=== PATIENT | male | born 1955 | race American Indian/Alaskan Native ===

== ENCOUNTER 2017-01-21 07:47 | Emergency (ER) | payer OTHER ==
[2017-01-21 08:40] LABS: Basophils % (Auto) 0.6 % (0.0-1.8); Eosinophils % (Auto) 0.1 % (0.0-4.3); Hematocrit 41.4 % (35.5-45.6); Hemoglobin 13.4 gm/dl (11.8-15.2); Mean Corpuscular HGB Conc 32 % (32-34); Mean Corpuscular Hemoglobin 30 pg (28-32); Mean Corpuscular Volume 91 fl (84-94); Platelet Count 328 K/mm3 (140-440); Red Blood Count 4.55 M/mm3 (3.65-5.03); Red Cell Distribution Width 13.9 % (13.2-15.2); White Blood Count 9.9 K/mm3 (4.5-11.0)
[2017-01-21 09:00] LABS: Alanine Aminotransferase 12 units/L (7-56); Albumin 4.3 g/dL (3.9-5); Albumin/Globulin Ratio 1.2 %; Alkaline Phosphatase 53 units/L (35-129); Amylase 111 units/L (27-131); BUN/Creatinine Ratio 6.66; Blood Urea Nitrogen 6 mg/dL (9-20); Calcium 10.1 mg/dL (8.4-10.2); Carbon Dioxide 18 mmol/L (22-30); Glucose 167 mg/dL (75-100); Lipase 40 units/L (13-60); Total Protein 7.9 g/dL (6.3-8.2)
[2017-01-21 09:01] LABS: Anion Gap 24 mmol/L; Chloride 101.8 mmol/L (98-107); Potassium 3.8 mmol/L (3.6-5.0); Sodium 140 mmol/L (137-145)
[2017-01-21 12:07] LABS: Bilirubin,Urine NEG (Negative); Blood,Urine NEG (Negative); Ketones,Urine 20 mg/dL (Negative); Leukocyte Esterase,Urine NEG (Negative); Mucus,Urine FEW /HPF; Nitrite,Urine NEG (Negative); Urobilinogen,Urine < 2.0 mg/dL (<2.0); WBC,Urine < 1.0 /HPF (0.0-6.0)
[2017-01-21] MEDS ORDERED: NACL 0.9% 1000 ML 1,000 ML IV ONE (13:37)
[2017-01-21] MEDS ORDERED: MORPHINE IV ONE (13:37)
[2017-01-21] MEDS ORDERED: ZOFRAN IV ONE ×2 (13:37→16:27)
--- NOTE | 2017-01-21 13:44 | Emergency Department Report ---
ED Abdominal Pain HPI - General Chief Complaint: Abdominal Pain Stated Complaint: Abdominal Pain Time Seen by Provider: 01/21/17 13:30 Source: patient, EMS Mode of arrival: Ambulatory Limitations: No Limitations - History of Present Illness Initial Comments: 61-year-old male presents to the emergency department via EMS complaining of abdominal pain. Patient reports the acute onset of generalized abdominal pain this morning at 4 AM. Pain is described as sharp in sensation and does not radiate. Pain has been constant since onset. Patient reports associated nausea , vomiting, and diarrhea. He denies seeing any blood. There has been no fever. Patient reports history of similar pain in the past. He states he has been diagnosed with pancreatitis, and this feels the same. There are no other complaints. MD Complaint: abdominal pain -: Sudden Time: 04:00 Location: diffuse Radiation: none Migration to: no migration Severity scale (0 -10): 7 Quality: sharp Consistency: constant Improves With: nothing Worsens With: nothing Associated Symptoms: nausea, vomiting, diarrhea - Related Data Previous Rx's Medication Instructions Recorded Last Taken Type HYDROcodone/APAP 7.5-325 [[place] 1 each PO Q6HR PRN #20 tablet 01/21/17 Unknown Rx 7.5/325] Allergies Allergy/AdvReac Type Severity Reaction Status Date / Time No Known Allergies Allergy Verified 09/19/16 16:33 ED Review of Systems ROS: Stated complaint: Abdominal Pain Other details as noted in HPI Comment: All other systems reviewed and negative Gastrointestinal: abdominal pain, nausea, vomiting, diarrhea ED Past Medical Hx - Past Medical History Previous Medical History?: Yes Hx Hypertension: Yes Hx Congestive Heart Failure: No Hx Diabetes: Yes Hx Asthma: No Hx COPD: No Hx HIV: No Additional medical history: pancreatitis. hypothyroid - Surgical History Past Surgical History?: Yes Hx Appendectomy: Yes - Family History Family history: no significant - Social History Smoking Status: Current Every Day Smoker Substance Use Type: Marijuana, Prescribed - Medications Home Medications: Home Medications Medication Instructions Recorded Confirmed Last Taken Type HYDROcodone/APAP 7.5-325 [[place] 1 each PO Q6HR PRN #20 tablet 01/21/17 Unknown Rx 7.5/325] ED Physical Exam - General Limitations: No Limitations General appearance: alert, in no apparent distress - Head Head exam: Present: atraumatic, normocephalic - Eye Eye exam: Present: normal appearance, PERRL, EOMI - ENT ENT exam: Present: normal exam, normal orophraynx, mucous membranes moist - Neck Neck exam: Present: normal inspection, full ROM. Absent: tenderness - Respiratory Respiratory exam: Present: normal lung sounds bilaterally. Absent: respiratory distress - Cardiovascular Cardiovascular Exam: Present: regular rate, normal rhythm, normal heart sounds - GI/Abdominal GI/Abdominal exam: Present: soft, tenderness (mild diffuse tenderness to palpation), normal bowel sounds. Absent: distended, guarding, rebound - Extremities Exam Extremities exam: Present: normal inspection, full ROM. Absent: tenderness - Back Exam Back exam: Present: normal inspection, full ROM. Absent: tenderness - Neurological Exam Neurological exam: Present: alert, oriented X3. Absent: motor sensory deficit - Skin Skin exam: Present: warm, dry, intact ED Course Vital Signs 01/21/17 01/21/17 01/21/17 08:19 13:21 13:56 Temperature 97.7 F 97.7 F Pulse Rate 66 72 77 Respiratory 20 16 15 Rate Blood Pressure 159/95 Blood Pressure 165/72 144/69 [Right] O2 Sat by Pulse 100 100 99 Oximetry 01/21/17 16:55 Temperature Pulse Rate 90 Respiratory 18 Rate Blood Pressure Blood Pressure 167/96 [Right] O2 Sat by Pulse 100 Oximetry ED Medical Decision Making - Lab Data Result diagrams: 01/21/17 08:28 01/21/17 08:28 - Medical Decision Making Laboratory results reviewed and discussed with the patient. Patient reports feeling better following medication. Patient will be discharged home at this time to follow up with his doctors. - Differential Diagnosis abdominal pain, pancreatitis, dehydration Critical care attestation.: If time is entered above; I have spent that time in minutes in the direct care of this critically ill patient, excluding procedure time. ED Disposition Clinical Impression: Pancreatitis, chronic Qualifiers: Pancreatitis type: unspecified pancreatitis type Qualified Code(s): K86.1 - Other chronic pancreatitis Disposition: TO HOME OR SELFCARE Is pt being admited?: No Condition: Stable Instructions: Pancreatitis (ED) Prescriptions: HYDROcodone/APAP 7.5-325 [[place] 7.5/325] 1 each PO Q6HR PRN #20 tablet PRN Reason: Pain Referrals: PRIMARY CARE, [Primary Care Provider] - 3-5 Days Time of Disposition: 18:20
[2017-01-21] MEDS ORDERED: DILAUDID IV ONE (16:27)
[2017-01-21 18:59] VITALS: BP 137/82
== END 2017-01-21 18:59 | disposition home or self-care (01) ==
LOC: ED 07:47
DX: K86.1 Other chronic pancreatitis (principal); I10 Essential (primary) hypertension; E11.9 Type 2 diabetes mellitus without complications; E03.9 Hypothyroidism, unspecified; F12.10 Cannabis abuse, uncomplicated; F17.200 Nicotine dependence, unspecified, uncomplicated; Z98.890 Other specified postprocedural states
CPT/HCPCS: 36415; 80053; 81001; 82150; 83690; 85025; 96361; 96374; 96375; 96376; 99284; J1170; J2270; J2405; J7030

== ENCOUNTER 2017-05-21 05:44 | Emergency (ER) | payer OTHER ==
[2017-05-21 06:37] LABS: Eosinophils % (Auto) 0.1 % (0.0-4.3); Hemoglobin 13.2 gm/dl (11.8-15.2); Mean Corpuscular HGB Conc 34 % (32-34); Mean Corpuscular Hemoglobin 30 pg (28-32); Mean Corpuscular Volume 89 fl (84-94); Platelet Count 375 K/mm3 (140-440); Red Blood Count 4.41 M/mm3 (3.65-5.03); Red Cell Distribution Width 14.6 % (13.2-15.2); White Blood Count 8.8 K/mm3 (4.5-11.0)
[2017-05-21 06:54] LABS: Alanine Aminotransferase 14 units/L (7-56); Albumin 4.4 g/dL (3.9-5); Albumin/Globulin Ratio 1.1 %; Alkaline Phosphatase 50 units/L (35-129); Anion Gap 25 mmol/L; BUN/Creatinine Ratio 8; Blood Urea Nitrogen 7 mg/dL (9-20); Calcium 9.9 mg/dL (8.4-10.2); Carbon Dioxide 19 mmol/L (22-30); Chloride 97.5 mmol/L (98-107); Glucose 186 mg/dL (75-100); Lipase 42 units/L (13-60); Potassium 3.5 mmol/L (3.6-5.0); Sodium 138 mmol/L (137-145); Total Protein 8.4 g/dL (6.3-8.2)
[2017-05-21 08:03] LABS: Bilirubin,Urine NEG (Negative); Blood,Urine NEG (Negative); Ketones,Urine 20 mg/dL (Negative); Leukocyte Esterase,Urine NEG (Negative); Nitrite,Urine NEG (Negative); Protein,Urine <15 mg/dL mg/dL (Negative); Urobilinogen,Urine < 2.0 mg/dL (<2.0); WBC,Urine < 1.0 /HPF (0.0-6.0)
[2017-05-21] MEDS ORDERED: ZOFRAN IV ONE (11:54)
[2017-05-21] MEDS ORDERED: PEPCID IV ONE (11:54)
[2017-05-21] MEDS ORDERED: MORPHINE IV ONE (11:54)
[2017-05-21] MEDS ORDERED: VALIUM IV ONE (11:54)
--- NOTE | 2017-05-21 11:55 | Emergency Department Report ---
ED General Adult HPI - General Chief complaint: Abdominal Pain Stated complaint: NAUSEA/VOMITING Time Seen by Provider: 05/21/17 11:41 Source: patient, EMS (ems notes not available at time of chart dictation), RN notes reviewed, old records reviewed Mode of arrival: Stretcher Limitations: No Limitations - History of Present Illness Initial comments: This is a 61-year-old male, the patient is previously known to me. Patient has a past medical history of alcohol abuse, pancreatitis. Patient presents to the ER with EMS for abdominal pain. The abdominal pain is epigastric, and associated with profuse nausea and vomiting. The patient reports no alcohol consumption for the past few months, he denies chest pain or shortness of breath, the patient denies testicular pain and irritative/ obstructive urinary symptoms, and he reports that his pain today is similar to prior episodes of pancreatitis. The pain is sharp, "all over", increases with palpation, decreases with rest, he reports pain typically improves with IV pain medication. -: Gradual Location: abdomen Radiation: non-radiation Quality: aching Consistency: constant Improves with: medication, rest Worsens with: movement Associated Symptoms: loss of appetite, malaise, nausea/vomiting. denies: chest pain - Related Data Previous Rx's Medication Instructions Recorded Last Taken Type HYDROcodone/APAP 7.5-325 [[place] 1 each PO Q6HR PRN #20 tablet 01/21/17 Unknown Rx 7.5/325] Dicyclomine [Bentyl] 10 mg PO QID PRN #20 capsule 05/21/17 Unknown Rx Famotidine [Pepcid] 20 mg PO QDAY #30 tablet 05/21/17 Unknown Rx Ondansetron [Zofran Odt] 4 mg PO QID PRN #20 tab.rapdis 05/21/17 Unknown Rx Promethazine [Phenergan SUPPOS] 50 mg NE Q6H PRN #20 supp.rect 05/21/17 Unknown Rx Sucralfate [Carafate] 1 gm PO ACHS #120 udc 05/21/17 Unknown Rx Allergies Allergy/AdvReac Type Severity Reaction Status Date / Time No Known Allergies Allergy Verified 09/19/16 16:33 ED Review of Systems ROS: Stated complaint: NAUSEA/VOMITING Other details as noted in HPI Constitutional: malaise. denies: fever Eyes: denies: vision change ENT: denies: epistaxis Respiratory: denies: cough Cardiovascular: denies: chest pain Gastrointestinal: abdominal pain, nausea, vomiting Genitourinary: denies: dysuria, testicular pain Musculoskeletal: denies: back pain Skin: denies: lesions Neurological: denies: weakness Psychiatric: denies: homicidal thoughts, suicidal thoughts ED Past Medical Hx - Past Medical History Previous Medical History?: Yes Hx Hypertension: Yes Hx Congestive Heart Failure: No Hx Diabetes: Yes Hx Asthma: No Hx COPD: No Hx HIV: No Additional medical history: pancreatitis. hypothyroid - Surgical History Past Surgical History?: Yes Hx Appendectomy: Yes - Social History Smoking Status: Current Every Day Smoker Substance Use Type: Marijuana - Medications Home Medications: Home Medications Medication Instructions Recorded Confirmed Last Taken Type HYDROcodone/APAP 7.5-325 [[place] 1 each PO Q6HR PRN #20 tablet 01/21/17 Unknown Rx 7.5/325] Dicyclomine [Bentyl] 10 mg PO QID PRN #20 capsule 05/21/17 Unknown Rx Famotidine [Pepcid] 20 mg PO QDAY #30 tablet 05/21/17 Unknown Rx Ondansetron [Zofran Odt] 4 mg PO QID PRN #20 tab.rapdis 05/21/17 Unknown Rx Promethazine [Phenergan SUPPOS] 50 mg NE Q6H PRN #20 supp.rect 05/21/17 Unknown Rx Sucralfate [Carafate] 1 gm PO ACHS #120 udc 05/21/17 Unknown Rx ED Physical Exam - General Limitations: No Limitations General appearance: alert, in no apparent distress - Head Head exam: Present: atraumatic, normocephalic - Eye Eye exam: Present: normal appearance, EOMI. Absent: nystagmus - ENT ENT exam: Present: normal exam, normal orophraynx, mucous membranes moist, normal external ear exam, other (no tongue fasciculations noted) - Neck Neck exam: Present: normal inspection, full ROM. Absent: tenderness, meningismus - Respiratory Respiratory exam: Present: normal lung sounds bilaterally. Absent: respiratory distress, wheezes, rales, rhonchi, stridor, chest wall tenderness, accessory muscle use, decreased breath sounds, prolonged expiratory - Cardiovascular Cardiovascular Exam: Present: regular rate, normal rhythm, normal heart sounds. Absent: bradycardia, tachycardia, irregular rhythm, systolic murmur, diastolic murmur, rubs, gallop - GI/Abdominal GI/Abdominal exam: Present: soft, tenderness, normal bowel sounds, other (there is epigastric tenderness, there is no rebound, guarding or peritoneal signs). Absent: distended, guarding, rebound, rigid, pulsatile mass - Rectal Rectal exam: Present: deferred - Extremities Exam Extremities exam: Present: normal inspection, full ROM, normal capillary refill. Absent: pedal edema, joint swelling, calf tenderness - Back Exam Back exam: Present: normal inspection, full ROM. Absent: tenderness, CVA tenderness (R), CVA tenderness (L), muscle spasm, paraspinal tenderness, vertebral tenderness - Neurological Exam Neurological exam: Present: alert, oriented X3, other (Extraocular movements intact. Tongue midline. No facial droop. Facial sensation intact to light touch in the V1, V2, V3 distribution bilaterally. 5 and 5 strength in 4 extremities.. Sensation is intact to light touch in 4 extremities.). Absent: motor sensory deficit - Psychiatric Psychiatric exam: Present: normal affect, normal mood. Absent: homicidal ideation, suicidal ideation - Skin Skin exam: Present: warm, dry, intact, normal color. Absent: rash ED Course Vital Signs 05/21/17 05/21/17 05:57 12:24 Temperature 97.9 F Pulse Rate 76 57 L Respiratory 18 16 Rate Blood Pressure 155/78 Blood Pressure 189/99 [Left] O2 Sat by Pulse 99 95 Oximetry - Reevaluation(s) Reevaluation #1: 05/21/17 14:46 Patient feels improved. Tolerating liquid feeds. As expected, CT scan suggests chronic pancreatitis, and hiatal hernia. The patient will be discharged with nonnarcotic pain medication, nausea medication, patient is walking with a steady gait at this time, he can follow up with outpatient gastroenterology. Return precautions are reviewed. - EJ/Peripheral Line Neck R Time Out Performed: Yes Indications: nurses unable to establis Skin Cleansed in Sterile Fashion: Yes Size: 18 Dressing Placed: Tegaderm Patient Tolerated Procedure: well ED Medical Decision Making - Lab Data Result diagrams: 05/21/17 06:07 05/21/17 06:07 Vital Signs 05/21/17 05/21/17 05:57 12:24 Temperature 97.9 F Pulse Rate 76 57 L Respiratory 18 16 Rate Blood Pressure 155/78 Blood Pressure 189/99 [Left] O2 Sat by Pulse 99 95 Oximetry Lab Results 05/21/17 05/21/17 05/21/17 Range/Units 06:07 06:07 07:31 WBC 8.8 (4.5-11.0) K/mm3 RBC 4.41 (3.65-5.03) M/mm3 Hgb 13.2 (11.8-15.2) gm/dl Hct 39.0 (35.5-45.6) % MCV 89 (84-94) fl MCH 30 (28-32) pg MCHC 34 (32-34) % RDW 14.6 (13.2-15.2) % Plt Count 375 (140-440) K/mm3 Lymph % (Auto) 13.2 L (13.4-35.0) % [place] % (Auto) 1.4 (0.0-7.3) % Eos % (Auto) 0.1 (0.0-4.3) % Baso % (Auto) 1.0 (0.0-1.8) % Lymph # 1.2 (1.2-5.4) K/mm3 [place] # 0.1 (0.0-0.8) K/mm3 Eos # 0.0 (0.0-0.4) K/mm3 Baso # 0.1 (0.0-0.1) K/mm3 Seg Neutrophils % 84.3 H (40.0-70.0) % Seg Neutrophils # 7.5 (1.8-7.7) K/mm3 Sodium 138 (137-145) mmol/L Potassium 3.5 L (3.6-5.0) mmol/L Chloride 97.5 L (98-107) mmol/L Carbon Dioxide 19 L (22-30) mmol/L Anion Gap 25 mmol/L BUN 7 L (9-20) mg/dL Creatinine 0.9 (0.8-1.5) mg/dL Estimated GFR > 60 ml/min BUN/Creatinine Ratio 8 % Glucose 186 H (75-100) mg/dL POC Glucose (70-105) Calcium 9.9 (8.4-10.2) mg/dL Total Bilirubin 0.40 (0.1-1.2) mg/dL AST 16 (5-40) units/L ALT 14 (7-56) units/L Alkaline Phosphatase 50 (35-129) units/L Total Protein 8.4 H (6.3-8.2) g/dL Albumin 4.4 (3.9-5) g/dL Albumin/Globulin Ratio 1.1 % Lipase 42 (13-60) units/L Urine Color Yellow (Yellow) Urine Turbidity Clear (Clear) Urine pH 7.0 (5.0-7.0) Ur Specific [place] 1.017 (1.003-1.030) Urine Protein <15 mg/dl (Negative) mg/dL Urine Glucose (UA) 150 (Negative) mg/dL Urine Ketones 20 (Negative) mg/dL Urine Blood Neg (Negative) Urine Nitrite Neg (Negative) Urine Bilirubin Neg (Negative) Urine Urobilinogen < 2.0 (<2.0) mg/dL Ur Leukocyte Esterase Neg (Negative) Urine WBC (Auto) < 1.0 (0.0-6.0) /HPF Urine RBC (Auto) 2.0 (0.0-6.0) /HPF 05/21/17 Range/Units 12:47 WBC (4.5-11.0) K/mm3 RBC (3.65-5.03) M/mm3 Hgb (11.8-15.2) gm/dl Hct (35.5-45.6) % MCV (84-94) fl MCH (28-32) pg MCHC (32-34) % RDW (13.2-15.2) % Plt Count (140-440) K/mm3 Lymph % (Auto) (13.4-35.0) % [place] % (Auto) (0.0-7.3) % Eos % (Auto) (0.0-4.3) % Baso % (Auto) (0.0-1.8) % Lymph # (1.2-5.4) K/mm3 [place] # (0.0-0.8) K/mm3 Eos # (0.0-0.4) K/mm3 Baso # (0.0-0.1) K/mm3 Seg Neutrophils % (40.0-70.0) % Seg Neutrophils # (1.8-7.7) K/mm3 Sodium (137-145) mmol/L Potassium (3.6-5.0) mmol/L Chloride (98-107) mmol/L Carbon Dioxide (22-30) mmol/L Anion Gap mmol/L BUN (9-20) mg/dL Creatinine (0.8-1.5) mg/dL Estimated GFR ml/min BUN/Creatinine Ratio % Glucose (75-100) mg/dL POC Glucose 185 H (70-105) Calcium (8.4-10.2) mg/dL Total Bilirubin (0.1-1.2) mg/dL AST (5-40) units/L ALT (7-56) units/L Alkaline Phosphatase (35-129) units/L Total Protein (6.3-8.2) g/dL Albumin (3.9-5) g/dL Albumin/Globulin Ratio % Lipase (13-60) units/L Urine Color (Yellow) Urine Turbidity (Clear) Urine pH (5.0-7.0) Ur Specific [place] (1.003-1.030) Urine Protein (Negative) mg/dL Urine Glucose (UA) (Negative) mg/dL Urine Ketones (Negative) mg/dL Urine Blood (Negative) Urine Nitrite (Negative) Urine Bilirubin (Negative) Urine Urobilinogen (<2.0) mg/dL Ur Leukocyte Esterase (Negative) Urine WBC (Auto) (0.0-6.0) /HPF Urine RBC (Auto) (0.0-6.0) /HPF - EKG Data 05/21/17 14:15 Normal sinus, 75 beats per minute, low voltage in the inferior leads, borderline left axis deviation, abnormal EKG, not morphologically consistent with STEMI, appears grossly unchanged when compared to prior EKG from 2016. - Radiology Data Radiology results: report reviewed, image reviewed CT scan suggests chronic pancreatitis. Hiatal hernia is suggested. - Medical Decision Making Differential diagnosis: GERD, gastritis, pancreatitis, pneumonia, alcoholic gastritis Assessment and plan: 61-year-old male, clinically sober, does not require 1013, with recurrent epigastric abdominal pain, unchanged EKG from prior, similar presentation to September 2016 of this year, when I evaluated the patient for similar symptoms. There are no tongue fasciculations but the patient does seem to have some generalized tremulousness. Therefore, he will be treated empirically with Valium. Patient's pain will be treated with other medications as well as nausea medication, IV fluids. CT scan of the abdomen and pelvis has been completed, results are pending, he received 2 rounds of antibiotic medication, nursing staff reports improvement in symptoms. Patient corroborates this. Critical care attestation.: If time is entered above; I have spent that time in minutes in the direct care of this critically ill patient, excluding procedure time. ED Disposition Clinical Impression: Abdominal pain Disposition: DC- TO HOME OR SELFCARE Is pt being admited?: No Does the pt Need Aspirin: No Condition: Good Instructions: Acute Abdominal Pain (ED), Pancreatitis (ED) Additional Instructions: Take the pain medication, nausea medications as directed. Avoid consumption of aspirin, ibuprofen, Aleve, Motrin, Naprosyn. Decrease and attempts to a limited alcohol consumption. Follow up with either primary care or gastroenterology within the next 3-[address] Chadwick is a local gastroenterology specialist. Dr. Donaldson is a local primary care doctor. Return to the ER right away with new pain, worse pain, migration of pain, fevers, chills, lethargy, irritability , projectile vomiting, change in mental status, inability to tolerate liquid feeds. Referrals: PRIMARY CARE, [Primary Care Provider] - 3-5 Days LISSA CHADWICK MD [Staff Physician] - 3-5 Days CHARO DONALDSON MD [Staff Physician] - 3-5 Days
[2017-05-21] MEDS ORDERED: D5/0.45NS 1,000 ML IV SCH (12:00)
[2017-05-21 12:24] VITALS: BP 189/99
[2017-05-21] MEDS ORDERED: NACL ONE (13:00)
[2017-05-21] MEDS ORDERED: REGLAN IV ONE (13:17)
[2017-05-21] MEDS ORDERED: REGLAN ONE (13:18)
[2017-05-21] MEDS ORDERED: CARAFATE PO ONE (14:25)
--- NOTE | 2017-05-21 14:26 | Cat Scan Report ---
CT SCAN OF THE ABDOMEN AND PELVIS WITH CONTRAST: HISTORY: Abdominal pain. TECHNIQUE: Helical CT in 1.25mm intervals following IV contrast. Sagittal and coronal reconstructions. FINDINGS: Compared to 09/19/26. The liver is normal in size and is without focal defect. No gallstones or biliary dilatation are noted. There are scattered calcifications in the pancreatic head suggestive of chronic pancreatitis. No acute inflammatory findings are appreciated. The kidneys are normal in size and position with no evidence of hydronephrosis or mass. Multiple bilateral simple renal cysts are stable. No obstructive uropathy. The adrenal glands are normal. The spleen is normal size and attenuation. There is no intestinal obstruction or ascites. Normal appendix. There is a moderate hiatal hernia. The abdominal aorta is normal caliber with diffuse calcifications. No abnormalities are identified within the retroperitoneum or mesentery. There is no evidence of peritoneal air or fluid. There is no evidence of any abnormal masses or fluid collections within the pelvis. No adenopathy is identified. The bladder is normal. IMPRESSION: No acute inflammatory process is appreciated. Chronic pancreatitis. No CT evidence for acute pancreatitis. Bilateral simple renal cysts. Hiatal hernia.
== END 2017-05-21 15:19 | disposition home or self-care (01) ==
LOC: ED 05:44
DX: R10.13 Epigastric pain (principal); I10 Essential (primary) hypertension; K85.90 Acute pancreatitis without necrosis or infection, unspecified
CPT/HCPCS: 36415; 74177; 80053; 81001; 82962; 83690; 85025; 93005; 93010; 96361; 96374; 96375; 99285; J2270; J2405; J2765; J3360; Q9967

== ENCOUNTER 2018-01-07 08:32 | Emergency (ER) | payer OTHER ==
[2018-01-07 09:11] LABS: Basophils % (Auto) 0.4 % (0.0-1.8); Eosinophils % (Auto) 0.3 % (0.0-4.3); Hematocrit 37.9 % (35.5-45.6); Hemoglobin 12.9 gm/dl (11.8-15.2); Lymphocytes % (Auto) 9.1 % (13.4-35.0); Mean Corpuscular HGB Conc 34 % (32-34); Mean Corpuscular Hemoglobin 30 pg (28-32); Mean Corpuscular Volume 87 fl (84-94); Monocytes # (Auto) 0.2 K/mm3 (0.0-0.8); Platelet Count 311 K/mm3 (140-440); Red Blood Count 4.34 M/mm3 (3.65-5.03); Red Cell Distribution Width 14.5 % (13.2-15.2)
[2018-01-07 09:32] LABS: Alanine Aminotransferase 25 units/L (7-56); Albumin 4.3 g/dL (3.9-5); BUN/Creatinine Ratio 11; Blood Urea Nitrogen 10 mg/dL (9-20); Calcium 10.3 mg/dL (8.4-10.2); Hemolysis Index 65; Lipase 24 units/L (13-60)
[2018-01-07] MEDS ORDERED: ZOFRAN ONE (10:12)
[2018-01-07] MEDS ORDERED: NACL 0.9% 1000 ML 1,000 ML ONE (10:12)
[2018-01-07] MEDS ORDERED: TORADOL ONE (10:13)
[2018-01-07] MEDS ORDERED: NACL 0.9% 1000 ML 1,000 ML IV ONE ×2 (10:15→14:20)
[2018-01-07] MEDS ORDERED: ZOFRAN IV ONE (10:15)
[2018-01-07] MEDS ORDERED: REGLAN ONE (11:02)
[2018-01-07] MEDS ORDERED: TORADOL IV ONE (11:06)
[2018-01-07] MEDS ORDERED: REGLAN IV ONE (11:09)
[2018-01-07] MEDS ORDERED: DILAUDID IV ONE (14:20)
--- NOTE | 2018-01-07 14:21 | Emergency Department Report ---
ED Abdominal Pain HPI - General Chief Complaint: Nausea/Vomiting/Diarrhea Stated Complaint: NAUSEA/VOMITING Time Seen by Provider: 01/07/18 14:07 Source: patient, EMS Mode of arrival: Ambulatory Limitations: No Limitations - History of Present Illness Initial Comments: 62-year-old male past medical history pancreatitis hypertension diabetes presents with complaint of epigastric pain with associated nausea and vomiting since yesterday. Patient states this is consistent with previous episodes of pancreatitis. Patient is awake alert and oriented 3. Denies chest pain palpitations or shortness of breath. States his nausea has improved since he received medicine earlier today. However still complaining of epigastric abdominal pain. MD Complaint: abdominal pain Location: epigastric Radiation: epigastric Migration to: epigastric Severity: moderate Severity scale (0 -10): 6 Quality: sharp Consistency: intermittent Improves With: nothing Worsens With: nothing - Related Data Previous Rx's Medication Instructions Recorded Last Taken Type HYDROcodone/APAP 7.5-325 [[place] 1 each PO Q6HR PRN #20 tablet 01/21/17 Unknown Rx 7.5/325] Dicyclomine [Bentyl] 10 mg PO QID PRN #20 capsule 05/21/17 Unknown Rx Famotidine [Pepcid] 20 mg PO QDAY #30 tablet 05/21/17 Unknown Rx Ondansetron [Zofran Odt] 4 mg PO QID PRN #20 tab.rapdis 05/21/17 Unknown Rx Promethazine [Phenergan SUPPOS] 50 mg VT Q6H PRN #20 supp.rect 05/21/17 Unknown Rx Sucralfate [Carafate] 1 gm PO ACHS #120 udc 05/21/17 Unknown Rx HYDROcodone/ACETAMINOPHEN [[place] 1 each PO Q8H PRN #15 tablet 01/07/18 Unknown Rx 5-325 Tablet] Ibuprofen [Motrin] 800 mg PO Q8HR PRN #20 tablet 01/07/18 Unknown Rx Ondansetron [Zofran Odt] 4 mg PO Q8H PRN #12 tab.rapdis 01/07/18 Unknown Rx Allergies Allergy/AdvReac Type Severity Reaction Status Date / Time No Known Allergies Allergy Verified 01/07/18 08:41 ED Review of Systems ROS: Stated complaint: NAUSEA/VOMITING Other details as noted in HPI Constitutional: denies: chills, fever Eyes: denies: eye pain, eye discharge, vision change ENT: denies: ear pain, throat pain Respiratory: denies: cough, shortness of breath, wheezing Cardiovascular: denies: chest pain, palpitations Endocrine: no symptoms reported Gastrointestinal: denies: abdominal pain, nausea, diarrhea Genitourinary: denies: urgency, dysuria Musculoskeletal: denies: back pain, joint swelling, arthralgia Skin: denies: rash, lesions Neurological: denies: headache, weakness, paresthesias Psychiatric: denies: anxiety, depression Hematological/Lymphatic: denies: easy bleeding, easy bruising ED Past Medical Hx - Past Medical History Hx Hypertension: Yes Hx Congestive Heart Failure: No Hx Diabetes: Yes Hx Asthma: No Hx COPD: No Hx HIV: No Additional medical history: pancreatitis. hypothyroid - Surgical History Hx Appendectomy: Yes - Social History Smoking Status: Current Every Day Smoker Substance Use Type: Marijuana - Medications Home Medications: Home Medications Medication Instructions Recorded Confirmed Last Taken Type HYDROcodone/APAP 7.5-325 [[place] 1 each PO Q6HR PRN #20 tablet 01/21/17 Unknown Rx 7.5/325] Dicyclomine [Bentyl] 10 mg PO QID PRN #20 capsule 05/21/17 Unknown Rx Famotidine [Pepcid] 20 mg PO QDAY #30 tablet 05/21/17 Unknown Rx Ondansetron [Zofran Odt] 4 mg PO QID PRN #20 tab.rapdis 05/21/17 Unknown Rx Promethazine [Phenergan SUPPOS] 50 mg [place] Q6H PRN #20 supp.rect 05/21/17 Unknown Rx Sucralfate [Carafate] 1 gm PO ACHS #120 udc 05/21/17 Unknown Rx HYDROcodone/ACETAMINOPHEN [[place] 1 each PO Q8H PRN #15 tablet 01/07/18 Unknown Rx 5-325 Tablet] Ibuprofen [Motrin] 800 mg PO Q8HR PRN #20 tablet 01/07/18 Unknown Rx Ondansetron [Zofran Odt] 4 mg PO Q8H PRN #12 tab.rapdis 01/07/18 Unknown Rx ED Physical Exam - General Limitations: No Limitations General appearance: alert, in no apparent distress - Head Head exam: Present: atraumatic, normocephalic - Eye Eye exam: Present: normal appearance, PERRL, EOMI - ENT ENT exam: Present: mucous membranes moist - Neck Neck exam: Present: normal inspection - Respiratory Respiratory exam: Present: normal lung sounds bilaterally. Absent: respiratory distress - Cardiovascular Cardiovascular Exam: Present: regular rate, normal rhythm. Absent: systolic murmur, diastolic murmur, rubs, gallop - GI/Abdominal GI/Abdominal exam: Present: tenderness (slight epigastric pain), normal bowel sounds - Rectal Rectal exam: Present: deferred - Extremities Exam Extremities exam: Present: normal inspection - Back Exam Back exam: Present: normal inspection - Neurological Exam Neurological exam: Present: alert, oriented X3, CN II-XII intact, normal gait - Psychiatric Psychiatric exam: Present: normal affect, normal mood - Skin Skin exam: Present: warm, dry, intact, normal color. Absent: rash ED Course Vital Signs 01/07/18 01/07/18 01/07/18 08:41 14:52 15:22 Temperature 98.4 F 99.4 F Pulse Rate 82 90 Respiratory 18 16 15 Rate Blood Pressure 174/84 Blood Pressure 135/72 [Left] O2 Sat by Pulse 100 100 Oximetry ED Medical Decision Making - Lab Data Result diagrams: 01/07/18 09:01 01/07/18 09:01 - Medical Decision Making A/P: Epigastric pain 1-CT shows no acute pancreatitis. Patient tolerating by mouth and describes decreasing pain 2-short course of Motrin, [place], Zofran when necessary 3-follow-up with primary care physician 4-labs in case reviewed with Dr. Veloz. I advised patient to return to the ED if he cannot tolerate anything by mouth. Patient is actively drinking fluid without difficulty Critical care attestation.: If time is entered above; I have spent that time in minutes in the direct care of this critically ill patient, excluding procedure time. ED Disposition Clinical Impression: Epigastric pain Disposition: DC- TO HOME OR SELFCARE Is pt being admited?: No Does the pt Need Aspirin: No Condition: Stable Instructions: Abdominal Pain (ED) Prescriptions: HYDROcodone/ACETAMINOPHEN [[place] 5-325 Tablet] 1 each PO Q8H PRN #15 tablet PRN Reason: Pain Ibuprofen [Motrin] 800 mg PO Q8HR PRN #20 tablet PRN Reason: Pain Ondansetron [Zofran Odt] 4 mg PO Q8H PRN #12 tab.rapdis PRN Reason: Nausea Referrals: [facility] [Outside] - 3-5 Days [facility] [Outside] - 3-5 Days CHARO ENGLAND MD [Staff Physician] - 3-5 Days Time of Disposition: 15:19
--- NOTE | 2018-01-07 15:10 | Cat Scan Report ---
FINAL REPORT EXAM: CT ABDOMEN PELVIS WO CON HISTORY: epigastric pain TECHNIQUE: Noncontrast CT of the abdomen and pelvis performed. No IV or gastrointestinal contrast was administered. Axial images and coronal and sagittal reformatted images were obtained. PRIORS: 09/19/2016 FINDINGS: The visualized aspects of the lung bases are clear. There is a small hiatal hernia. Within the limitations of a non-enhanced study, the visualized liver, spleen, and adrenal glands demonstrate no significant abnormalities. There are multiple unchanged renal cysts. There are some calcifications in the pancreatic head region which are unchanged and probably reflect prior episodes of pancreatitis. There is currently no evidence of acute pancreatitis. There are aortoiliac atherosclerotic calcifications. There is no abdominal aortic aneurysm. There is no evidence of intestinal obstruction. The appendix is normal. There are no abnormal fluid collections seen. There is no free intraperitoneal air. The bladder is unremarkable. There is no abnormal pelvic mass or fluid collections seen. IMPRESSION: Unchanged small hiatal hernia. Pancreatic head calcifications are unchanged and probably reflect prior episodes of pancreatitis. There is currently no evidence of acute pancreatitis. Unchanged renal cysts. There is no acute abnormality identified.
[2018-01-07 15:24] VITALS: BP 135/72
== END 2018-01-07 15:49 | disposition home or self-care (01) ==
LOC: ED 08:32
DX: R10.13 Epigastric pain (principal); F17.200 Nicotine dependence, unspecified, uncomplicated; I10 Essential (primary) hypertension; E11.9 Type 2 diabetes mellitus without complications; E03.9 Hypothyroidism, unspecified; Z90.49 Acquired absence of other specified parts of digestive tract
CPT/HCPCS: 36415; 74176; 80053; 83690; 85025; 96361; 96374; 96375; 99284; J1170; J1885; J2405; J2765; J7030